=== PATIENT | female | born 1975 | race Caucasian/White ===

== ENCOUNTER 2019-04-29 06:05 | Day surgery (SDC) | payer OTHER ==
[~2019-04-29] VITALS: Ht 172.7 cm; Wt 60.7 kg
[~2019-04-29 06:05] MED LIST: NO HOME MEDS
[2019-04-29] MEDS ORDERED: normal saline 1000ml 1,000 ML IV PRN (06:25)
[2019-04-29] MEDS ORDERED: albumin 25% 100mL bottle x 1 IV PRN (06:25)
[2019-04-29] MEDS ORDERED: CEPH500C2 PO (06:27)
[2019-04-29] MEDS ORDERED: IBUP-862 PO (06:27)
[2019-04-29 06:35] VITALS: BP 110/71
[2019-04-29] MEDS ORDERED: ibuprofen 200mg tablet PO ONE (08:15)
[2019-04-29 08:21] VITALS: BP 128/84
[2019-04-29 08:30] VITALS: BP 122/71
[2019-04-29 08:45] VITALS: BP 110/61
[2019-04-29 09:00] VITALS: BP 103/65
== END 2019-04-29 09:22 | disposition home or self-care (01) ==
LOC: SSTAY O 06:05
PROVIDERS: ATTEND Radiology Vascular & Interventional Radiology
DX: R18.8 Other ascites (principal); Z85.3 Personal history of malignant neoplasm of breast; Z85.43 Personal history of malignant neoplasm of ovary; Z88.8 Allergy status to other drugs, medicaments and biological substances; Z88.5 Allergy status to narcotic agent; Z88.1 Allergy status to other antibiotic agents; Z79.899 Other long term (current) drug therapy; Z90.49 Acquired absence of other specified parts of digestive tract
CPT/HCPCS: 49083; C1729; J7030

== ENCOUNTER 2022-08-12 07:44 | Day surgery (SDC) | payer BC ==
[~2022-08-12] VITALS: Ht 172.7 cm; Wt 61.8 kg
[~2022-08-12 07:44] MED LIST changes: +CEPH500C2 PO; +IBUP-862 PO
[2022-08-12] MEDS ORDERED: NYST1000 PO (08:05)
[2022-08-12] MEDS ORDERED: MORP15TA PO (08:05)
[2022-08-12] MEDS ORDERED: ONDA4TAB12 PO (08:05)
[2022-08-12] MEDS ORDERED: albumin 25% 100mL bottle x 1 IV PRN (08:05)
[2022-08-12] MEDS ORDERED: FAMO-128 PO (08:06)
[2022-08-12 08:07] VITALS: BP 110/81
[2022-08-12] MEDS ORDERED: LIDOcaine 1% 30ml preserv. free vial SQ STA (08:21)
--- NOTE | 2022-08-12 09:10 | NUR ---
Procedure cancelled. Abdominal ultrasound demonstrated limited fluid to drain. Patient will follow up with primary care provider.
== END 2022-08-12 09:10 | disposition home or self-care (01) ==
LOC: SSTAY O 07:44
PROVIDERS: ATTEND Radiology Vascular & Interventional Radiology
DX: R18.8 Other ascites (principal); Z53.8 Procedure and treatment not carried out for other reasons; R14.0 Abdominal distension (gaseous); Z85.3 Personal history of malignant neoplasm of breast; Z98.890 Other specified postprocedural states; Z88.1 Allergy status to other antibiotic agents; Z88.8 Allergy status to other drugs, medicaments and biological substances; Z88.5 Allergy status to narcotic agent; Z79.899 Other long term (current) drug therapy
CPT/HCPCS: 76705; A6258; A6449

== ENCOUNTER 2022-09-29 16:36 | Outpatient (CLI) | payer BC ==
[~2022-09-29 16:36] MED LIST changes: -CEPH500C2 PO; +FAMO-128 PO; -IBUP-862 PO; +MORP15TA PO; -NO HOME MEDS; +NYST1000 PO; +ONDA4TAB12 PO
[2022-09-29 17:02] LABS: BASOPHILS % (AUTO) 0.8 % (0-1); EOSINOPHILS # (AUTO) 0.2 X10'3 (0-0.9); EOSINOPHILS % (AUTO) 2.9 % (0-6); HEMATOCRIT 35.1 % (35.0-45.0); HEMOGLOBIN 11.9 g/dl (12.0-16.0); LYMPHOCYTES # (AUTO) 1.8 X10'3 (1.1-4.8); LYMPHOCYTES % (AUTO) 31.7 % (21-51); MEAN CORPUSCULAR HEMOGLOBIN 33.3 PG (27.0-31.0); MEAN CORPUSCULAR HGB CONC 33.8 g/dL (33.0-36.5); MEAN CORPUSCULAR VOLUME 98.5 FL (78-98); MEAN PLATELET VOLUME 7.5 FL (7.4-10.4); MONOCYTES # (AUTO) 0.6 X10'3 (0-0.9); MONOCYTES % (AUTO) 10.6 % (2-12); NEUTROPHILS # (AUTO) 3.1 X10'3 (1.8-7.7); PLATELET COUNT 253 X10'3 (140-440); RED BLOOD COUNT 3.57 X10'6 (4.20-5.60); RED CELL DISTRIBUTION WIDTH 16.5 % (11.5-14.5); WHITE BLOOD COUNT 5.7 X10'3 (4.5-11.0)
[2022-09-29 17:30] LABS: TOTAL CELLS COUNTED 100
[2022-09-29 17:31] LABS: ALANINE AMINOTRANSFERASE 398 U/L (12-78); ALBUMIN 2.9 G/DL (3.4-5.0); ALBUMIN/GLOBULIN RATIO 0.9 (1.1-1.5); ALKALINE PHOSPHATASE 209 IU/L (46-116); ANION GAP 8 (8-16); ASPARTATE AMINO TRANSFERASE 226 U/L (10-37); BILIRUBIN,TOTAL 0.4 MG/DL (0.1-1.0); BLOOD UREA NITROGEN 27 MG/DL (7-18); CHLORIDE 100 MMOL/L (99-107); GLUCOSE 85 MG/DL (70-104); MAGNESIUM 1.6 MG/DL (1.5-2.4); PHOSPHORUS 4.5 MG/DL (2.3-4.5); PLATELET ESTIMATE NORMAL; POTASSIUM 4.4 MMOL/L (3.5-5.1); SODIUM 136 MMOL/L (135-145); TOTAL PROTEIN 6.2 G/DL (6.4-8.2); TRIGLYCERIDES 202 MG/DL (20-135); eGFR > 90 ML/MIN
[2022-09-29 17:32] LABS: ANISOCYTOSIS 1+
== END 2022-09-29 23:59 | disposition home or self-care (01) ==
LOC: LAB SPEC 16:36
PROVIDERS: ATTEND Obstetrics & Gynecology
DX: C17.9 Malignant neoplasm of small intestine, unspecified (principal); C50.912 Malignant neoplasm of unspecified site of left female breast
CPT/HCPCS: 36415; 80053; 83735; 84100; 84478; 85007; 85025; 85610

== ENCOUNTER 2022-11-10 12:10 | Outpatient (CLI) | payer BC ==
[2022-11-10 12:35] LABS: ALANINE AMINOTRANSFERASE 49 U/L (12-78); ALBUMIN 3.3 G/DL (3.4-5.0); ALBUMIN/GLOBULIN RATIO 0.9 (1.1-1.5); ALKALINE PHOSPHATASE 160 IU/L (46-116); ANION GAP 8 (8-16); ASPARTATE AMINO TRANSFERASE 31 U/L (10-37); BILIRUBIN,TOTAL 0.4 MG/DL (0.1-1.0); BLOOD UREA NITROGEN 40 MG/DL (7-18); BUN/CREATININE RATIO 55.6 (10.0-20.0); CALCIUM 9.5 MG/DL (8.5-10.1); CHLORIDE 95 MMOL/L (99-107); CREATININE 0.72 MG/DL (0.40-0.90); GLUCOSE 107 MG/DL (70-104); PHOSPHORUS 4.3 MG/DL (2.3-4.5); POTASSIUM 5.3 MMOL/L (3.5-5.1); SODIUM 128 MMOL/L (135-145); TOTAL PROTEIN 6.9 G/DL (6.4-8.2); TRIGLYCERIDES 79 MG/DL (20-135); eGFR 87 ML/MIN
== END 2022-11-10 23:59 | disposition home or self-care (01) ==
LOC: LAB SPEC 12:10
PROVIDERS: ATTEND Obstetrics & Gynecology
DX: Z45.2 Encounter for adjustment and management of vascular access device (principal); C50.112 Malignant neoplasm of central portion of left female breast; C56.9 Malignant neoplasm of unspecified ovary; K56.690 Other partial intestinal obstruction; Z17.1 Estrogen receptor negative status [ER-]; L87.8 Other transepidermal elimination disorders
CPT/HCPCS: 36415; 80053; 83735; 84100; 84478; 85610